=== PATIENT | male | born 2000 | race African-American/Black ===

== ENCOUNTER 2022-09-09 13:11 | Emergency (ER) | payer OTHER ==
[~2022-09-09] VITALS: Ht 172.7 cm; Wt 74.4 kg
[2022-09-09 14:31] LABS: CLARITY,URINE TURBID (CLEAR); COLOR,URINE YELLOW (YELLOW); KETONES,URINE NEGATIVE (NEGATIVE); LEUKOCYTE ESTERASE ,URINE MODERATE (NEGATIVE); NITRITE,URINE NEGATIVE (NEGATIVE); PROTEIN,URINE DIPSTICK 1+ (NEGATIVE); URINE UROBILINOGEN 1 mg/dL (0.2 - 1)
[2022-09-09 14:55] LABS: BACTERIA,URINE MODERATE /HPF; RBC,URINE 0-5 /HPF (0-5)
[2022-09-09] MEDS ORDERED: CEFTRIAXONE 500 MG VIAL IM ONE (15:00)
[2022-09-09] MEDS ORDERED: CEFTRIAXONE 500 MG VIAL ONE (15:07)
[2022-09-09] MEDS ORDERED: DOXYCYCLINE HY100 MG PO (15:16)
== END 2022-09-09 15:28 | disposition home or self-care (01) ==
LOC: ER 13:29
DX: A64 Unspecified sexually transmitted disease (principal); N39.0 Urinary tract infection, site not specified; F17.210 Nicotine dependence, cigarettes, uncomplicated
CPT/HCPCS: 81001; 99282; J0696